=== PATIENT | female | born 1990 | race American Indian/Alaskan Native ===

== ENCOUNTER 2020-06-27 13:11 | Outpatient (CLI) | payer OTHER | END 2020-06-27 13:59 | disposition home or self-care (01) | LOC: NST 13:11 | PROVIDERS: ATTEND Obstetrics & Gynecology Maternal & Fetal Medicine | DX: Z34.83 Encounter for supervision of other normal pregnancy, third trimester (principal) ==

== ENCOUNTER 2020-07-01 12:06 | Outpatient (CLI) | payer OTHER | END 2020-07-01 12:49 | disposition home or self-care (01) | LOC: NST 12:06 | PROVIDERS: ATTEND Obstetrics & Gynecology Maternal & Fetal Medicine | DX: Z34.83 Encounter for supervision of other normal pregnancy, third trimester (principal) ==

== ENCOUNTER 2020-07-04 11:09 | Inpatient (IN) | payer OTHER ==
[~2020-07-04] VITALS: Ht 167.6 cm; Wt 74.4 kg
[2020-07-04] MEDS ORDERED: PRENATAL + DHA1 EAC1 PO (15:33)
[2020-07-07] MEDS ORDERED: OXYC1TAB9 PO (07:44)
[2020-07-07] MEDS ORDERED: KETO10TA2 PO (07:44)
== END 2020-07-07 11:29 | disposition home or self-care (01) | DRG 788 ==
LOC: OB/GYN 11:09 → LDR 11:09 → OB/GYN 15:37
PROVIDERS: ADMIT Obstetrics & Gynecology Maternal & Fetal Medicine; ATTEND Obstetrics & Gynecology Maternal & Fetal Medicine
PROC: 4A1HXFZ Monitoring of Products of Conception, Cardiac Rhythm, External Approach (ICD-10-PCS; 2020-07-04)
PROC: 10D00Z1 Extraction of Products of Conception, Low, Open Approach (ICD-10-PCS; principal; 2020-07-04 14:00)
DX: O42.913 Preterm premature rupture of membranes, unspecified as to length of time between rupture and onset of labor, third trimester (principal); O36.8330 Maternal care for abnormalities of the fetal heart rate or rhythm, third trimester, not applicable or unspecified; O77.9 Labor and delivery complicated by fetal stress, unspecified; Z3A.36 36 weeks gestation of pregnancy; Z37.0 Single live birth; Z20.828 Contact with and (suspected) exposure to other viral communicable diseases

== ENCOUNTER 2024-08-13 12:28 | Inpatient (IN) | payer OTHER ==
[~2024-08-13] VITALS: Ht 167.6 cm; Wt 3.6 kg
[~2024-08-13 12:28] MED LIST: KETO10TA2 PO; OXYC1TAB9 PO; PRENATAL + DHA1 EAC1 PO
[2024-08-25 08:04] VITALS: BP 115/82
[2024-08-25 09:33] LABS: INR < 0.93; PARTIAL THROMBOPLASTIN TIME 27.1 SECONDS (22.0-34.0); PROTHROMBIN TIME 10.1 SECONDS (9.0-11.5)
[2024-08-25 10:07] LABS: ALBUMIN 3.1 gm/dL (3.4-5.0); BILIRUBIN TOTAL 0.38 mg/dL (0.3-1.2); CALCIUM 9.4 mg/dL (8.5-10.1); CREATININE SERUM 0.5 mg/dL (0.55-1.02); GFR 141.23; GLOBULINA 3.3 G/DL (2.4-3.5); POTASSIUM 3.97 mEq/L (3.5-5.1); TOTAL PROTEIN 6.4 gm/dL (6.4-8.2)
[2024-08-25] MEDS ORDERED: CEFAZOLIN SODIUM 1,000 MG VIAL ONE (12:07)
[2024-08-25] MEDS ORDERED: CITRIC ACID/SODIUM CITRATE 30 ML BLIST.PACK PO ONE ×2 (12:10→13:20)
[2024-08-25] MEDS ORDERED: OXYTOCIN 10 UNITS/ML VIAL ONE (13:19)
[2024-08-25] MEDS ORDERED: ERYTHROMYCIN BASE OPHT 1GM EACH TUBE OP ONE ×2 (13:19→16:15)
[2024-08-25] MEDS ORDERED: KETOROLAC TROMETHAMINE 30 MG VIAL IV SCH (15:21)
[2024-08-25] MEDS ORDERED: OXYTOCIN 1,000 ML IV ONE (15:30)
[2024-08-25] MEDS ORDERED: RINGERS SOLUTION,LACTATED 1,000 ML IV SCH (15:30)
[2024-08-25] MEDS ORDERED: MORPHINE SULFATE 4 MG/ML CARTRIDGE IV PRN (15:30)
[2024-08-25] MEDS ORDERED: MORPHINE SULFATE 4 MG/ML VIAL IV ONE ×2 (15:50→16:35)
[2024-08-25] MEDS ORDERED: OXYTOCIN 10 UNITS/ML VIAL IV ONE (16:15)
[2024-08-25] MEDS ORDERED: GABAPENTIN 300 MG CAPSULE PO SCH (17:00)
[2024-08-25] MEDS ORDERED: SIMETHICONE 125 MG CAPSULE PO SCH (17:00)
[2024-08-25 17:13] VITALS: BP 140/78
[2024-08-25] MEDS ORDERED: ACETAMINOPHEN 500 MG GEL..CAP PO SCH (18:00)
[2024-08-25] MEDS ORDERED: ONDANSETRON HCL 2 MG/ML VIAL IV SCH (20:00)
[2024-08-26 02:17] VITALS: BP 112/75
[2024-08-26 06:09] LABS: HEMOGLOBIN 10.9 g/dL (12.0-15.00); MEAN CELL VOLUME 92.3 fL (80.00-100.00); MEAN CORPUSCULAR HEMOGLOBIN 32.5 pg (27.00-32.0); MEAN CORPUSCULAR HGB CONC 35.2 g/dl (32.0-36.0); PLATELET COUNT 142 K/uL (150-450); RED BLOOD COUNT 3.36 M/uL (4.00-6.00); RED CELL DISTRIBUTION WIDTH 13.4 % (11.5-14.5)
[2024-08-26 08:00] VITALS: BP 125/80
[2024-08-26] MEDS ORDERED: OxyCODONE HCL 5 MG TABLET (ROXICODONE) PO PRN (08:00)
[2024-08-26] MEDS ORDERED: KETOROLAC TROMETHAMINE 10 MG TABLET PO SCH (08:00)
[2024-08-26] MEDS ORDERED: DOCUSATE SODIUM 100MG CAP PO SCH (09:00)
[2024-08-26 21:13] VITALS: BP 123/75
[2024-08-27] VITALS: BP 111/73
== END 2024-08-27 11:15 | disposition home or self-care (01) | DRG 788 ==
LOC: LDR 08-24 12:14 → OB/GYN 08-25 08:00 → O/R 08-25 08:00 → OB/GYN 08-25 11:19
PROVIDERS: Obstetrics & Gynecology; ADMIT Obstetrics & Gynecology Maternal & Fetal Medicine; ATTEND Obstetrics & Gynecology Maternal & Fetal Medicine
PROC: 4A1HXCZ Monitoring of Products of Conception, Cardiac Rate, External Approach (ICD-10-PCS; 2024-08-25)
PROC: 10D00Z1 Extraction of Products of Conception, Low, Open Approach (ICD-10-PCS; principal; 2024-08-25 15:30)
DX: O34.211 Maternal care for low transverse scar from previous cesarean delivery (principal); Z3A.39 39 weeks gestation of pregnancy; Z37.0 Single live birth; Z20.822 Contact with and (suspected) exposure to COVID-19